=== PATIENT | male | born 1990 | race Caucasian/White ===

== ENCOUNTER 2025-06-09 17:40 | Emergency (ER) | payer BC ==
[~2025-06-09] VITALS: Ht 177.8 cm; Wt 65.8 kg
[2025-06-09] MEDS ORDERED: KETOROLAC TROMETHAMINE 30 MG VIAL IU ONE (20:30)
[2025-06-09] MEDS ORDERED: ACETAMINOPHEN 500 MG GEL..CAP PO ONE ×2 (20:30→21:21)
[2025-06-09] MEDS ORDERED: FAMOTIDINE/PF 20 MG in 0.9 % SODIUM CHLORIDE 8 ML IV PUSH ONE (20:30)
[2025-06-09] MEDS ORDERED: 0.9 % SODIUM CHLORIDE 1,000 ML IV SCH (20:30)
[2025-06-09] MEDS ORDERED: KETOROLAC TROMETHAMINE 30 MG VIAL ONE (21:21)
[2025-06-09] MEDS ORDERED: FAMOTIDINE/PF 20 MG/2 ML VIAL ONE (21:22)
[2025-06-09 21:52] LABS: BASO % 1.1 % (0.1-1.2); EOS # 0.12 (0.04-0.54); EOS % 1.7 % (0.7-7.0); LYMPH # 2.58 (1.18-3.74); LYMPH % 35.9 % (19.3-53.1); MEAN PLATELET VOLUME 9.50 fl (9.4-12.4); MONO # 0.78 (0.24-0.82); MONO % 10.9 % (4.7-12.5); NEUT # 3.61 (1.56-6.13); NEUT % 50.3 % (34.0-71.1); RED CELL DISTRIBUTION WIDTH 10.8 % (11.6-14.4)
[2025-06-09 21:56] LABS: ERYTHROCYTE SEDIMENTATION RATE 2 mm/hr (0-15)
[2025-06-09 22:10] LABS: INR 1.0
[2025-06-09 22:15] LABS: ALT/SGPT 42.0 U/L (12-78); AST/SGOT 21.0 U/L (15-37); BILIRUBIN TOTAL 0.96 mg/dL (0.3-1.2); BUN CREA RATIO 14.0 (7.0-25.0); CREATININE SERUM 0.96 mg/dL (0.70-1.30); GFR 89.13; GLOBULINA 3.8 G/DL (2.4-3.5); GLUCOSE FASTING 89.0 mg/dL (65-100); OSMOLALITY SERUM 281.0 MOSM/KG (275-295)
[2025-06-09 23:23] LABS: URINE APPEARANCE Cloudy; URINE BILIRRUBIN Negative (NEGATIVE); URINE BLOOD Negative; URINE COLOR Yellow; URINE GLUCOSE Negative (NEGATIVE); URINE KETONE Negative (NEGATIVE); URINE LEUKOCYTE Negative; URINE NITRATE Negative; URINE PROTEIN Negative (NEGATIVE); URINE UROBILINOGEN 0.2 E.U./dl
[2025-06-09 23:28] LABS: URINE BACTERIA 20.5 uL (0.0-1933); URINE EPITHELIAL CELLS 2.1 uL (0.0-38.8); URINE WBC 3.6 uL (0.0-23.2)
[2025-06-09 23:37] LABS: URINE CAST 0.00 uL (0.0-1.40); URINE RBC 0.4 uL (0.0-20.8)
[2025-06-09] MEDS ORDERED: IBU600 MG PO (23:42)
[2025-06-09] MEDS ORDERED: PEPCID AC20 MG PO (23:42)
[2025-06-09] MEDS ORDERED: NORFLEX100MG PO (23:42)
== END 2025-06-10 03:47 | disposition home or self-care (01) ==
LOC: ER 17:41
PROVIDERS: General Practice
DX: M54.89 Other dorsalgia (principal); Z87.442 Personal history of urinary calculi